=== PATIENT | female | born 1990 | race African-American/Black ===

== ENCOUNTER 2019-08-27 23:23 | Emergency (ER) | payer BC, OTHER ==
[~2019-08-27] VITALS: Ht 167.6 cm; Wt 59.0 kg
[2019-08-28] MEDS ORDERED: KETOROLAC 30MG/ML VIAL IM ONE
[2019-08-28 01:22] VITALS: BP 118/66
== END 2019-08-28 01:29 | disposition home or self-care (01) ==
LOC: ER 23:23
DX: M79.661 Pain in right lower leg (principal); G89.29 Other chronic pain; J45.909 Unspecified asthma, uncomplicated
CPT/HCPCS: 81025; 93971; 96372; 99284; J1885

== ENCOUNTER 2020-01-23 15:01 | Emergency (ER) | payer BC, OTHER ==
[~2020-01-23] VITALS: Ht 167.6 cm; Wt 57.0 kg
[2020-01-23] MEDS ORDERED: KETOROLAC 30MG/ML VIAL IM ONE (18:15)
[2020-01-23 18:27] LABS: CLARITY URINE CLOUDY (CLEAR); COLOR URINE YELLOW (YELLOW); KETONES URINE TRACE (NEGATIVE); LEUKOCYTE ESTERASE URINE TRACE (NEGATIVE); NITRITE URINE NEGATIVE (NEGATIVE); OCCULT BLOOD URINE NEGATIVE (NEGATIVE); PROTEIN URINE NEGATIVE (NEGATIVE); SPECIFIC GRAVITY URINE 1.019 (1.005-1.030)
[2020-01-23 18:32] VITALS: BP 117/77
== END 2020-01-23 19:39 | disposition home or self-care (01) ==
LOC: ER 15:01
DX: M54.5 Low back pain (principal); J45.909 Unspecified asthma, uncomplicated
CPT/HCPCS: 72131; 81003; 81025; 96372; 99284; J1885